=== PATIENT | female | born 1990 | race Caucasian/White ===

== ENCOUNTER 2018-05-23 11:11 | Emergency (ER) | payer OTHER ==
[~2018-05-23] VITALS: Ht 157.5 cm; Wt 61.4 kg
[2018-05-23 11:18] VITALS: TEMP 37.4; Ht 157.5 cm; Wt 61.4 kg
[2018-05-23] MEDS ORDERED: KLN/5 PO (11:46)
[2018-05-23] MEDS ORDERED: BCPILLS PO (11:46)
[2018-05-23] MEDS ORDERED: PROPARACAINE HCL 0.5% OP SOLN 15 ML BTL OP STA (11:48)
[2018-05-23 12:44] VITALS: BP 121/62; PULSE 67; O2SAT 100
--- NOTE | 2018-05-23 15:08 | EMERGENCY ROOM VISIT NOTE ---
History First contact with patient: 11:37 Chief Complaint: CHEMICAL EXPOSURE Stated Complaint: SKIN IRRITATION, SIGNIFICANT EYE IRRITATION History of Present Illness The patient is a 27 year old female who presents to the Emergency Room with complaints of a chemical splash to her face, chest, neck and arms. The patient reports that she was mixing chemicals at work under boiling conditions. She reports that it exploded, spring chemical solution everywhere. She reported a burning sensation of the right eye. She did irrigate her eye with an eyewash station for approximately 10 minutes. The patient does wear contacts, and removed her right contact prior to irrigation. She reports mild persistent burning sensation. She reports that the redness and burning on the skin has significantly improved. She reports that the chemical she was using was potassium hydroxide and ammonium chloride. She rates her eye discomfort a 3 out of 10. Tetanus immunization is up-to-date. Review of Systems HEENT: Denies dizziness, visual problems, hearing loss, tinnitus. Denies difficulty swallowing or oral lesions. PULMONARY: Denies cough, shortness of breath, sputum production or hemoptysis. CARDIOVASCULAR: Denies chest pain, palpitations, dyspnea on exertion, orthopnea or peripheral edema. GASTROINTESTINAL: Denies diarrhea, constipation, nausea, vomiting, or abdominal pain. GENITOURINARY: Denies dysuria, frequency, urgency or nocturia. NEUROLOGIC: Denies history of epilepsy, CVA, TIA or chronic headaches. MUSCULOSKELETAL: Denies history of joint tenderness/swelling. SKIN: Denies rashes or lesions. PSYCHIATRIC: Denies history of depression or mental illness. ENDOCRINE: Denies history of diabetes, thyroid disorders, abnormal hair growth or sexual dysfunction. Past Medical/Surgical History Medical Problems: (1) No significant past medical history Surgical Problems: (1) History of wisdom tooth extraction Family History FH: cancer FH: diabetes mellitus FH: lung disease FH: seizures Social History Smoking Status: Never Smoker Alcohol Use: occasionally Marital Status: single Housing Status: lives with roommate Occupation Status: employed Current/Historical Medications Scheduled Control Pills ( Control Pills), 1 TAB PO DAILY Scheduled PRN Clonazepam (Klonopin), 0.5 MG PO for Anxiety Physical Exam Vital Signs Date Time Temp Pulse Resp B/P (MAP) Pulse Ox O2 Delivery O2 Flow Rate FiO2 05/23/18 12:44 67 18 121/62 100 05/23/18 11:18 37.4 75 17 132/80 93 Room Air Right Eye Acuity: 20/200 no corrective lens Left Eye Acuity: 20/70 no corrective lens Physical Exam CONSTITUTIONAL: Healthy and well nourished. Alert and oriented X 3 with positive affect. HEENT: Normocephalic, atraumatic. Pupils equal, round and reactive. NECK: Full active range of motion without discomfort. RESPIRATORY: Clear to auscultation bilaterally with no wheezing, crackles, rhonchi or stridor. CARDIOVASCULAR: Regular rate and rhythm with no murmurs, rubs or gallops. GASTROINTESTINAL: Bowel sounds present in all quadrants. MUSCULOSKELETAL: Full range of motion of all joints without discomfort. INTEGUMENTARY: No rash or other significant dermatologic conditions noted. NEUROLOGIC: Cranial nerves II-XII grossly intact. No focal neurologic deficits noted. Medical Decision & Procedures Medications Administered Medications (Trade) Dose Ordered Sig/Britt Route Start Time Stop Time Status Last Admin Dose Admin Proparacaine HCl (Alcaine 0.5% Oph Soln) 2 drops NOW STAT OP 05/23/18 11:48 05/23/18 11:49 DC 05/23/18 11:48 2 DROPS Procedure Quick pH measurement of the right eye was 7. 2 drops of Alcaine were instilled into the eye, then Krunal lens irrigation with a liter normal saline was administered. After irrigation was completed, the patient reported relief of the burning sensation in the eye. Slit-lamp and fluorescein exam did not show any evidence for significant conjunctival inflammation or injection. No mucopurulent or bloody drainage noted. No hyphema. Fluorescein exam does not show any abnormal uptake within the cornea or conjunctiva. ED Course Patient history and physical exam were performed. Nurse's notes were reviewed. Vital signs were reviewed and were normal. Quick PH measurement of the right eye was normal. The patient also does not have any significant chemical abdi of the soft tissue of the chest, neck and extremities. Quick attention to Krunal lens irrigation of the right eye was performed. Meanwhile, I reviewed MSDS sheets for the chemicals that were used. Slit-lamp and fluorescein exam were also performed and were normal. The patient denied any eye discomfort at the time of discharge. Her visual acuity could not be fully assessed because she did not have her glasses with her. At this point, the patient was ordered Lacri-Lube as needed for comfort. Unfortunately hospital does not have any in stock. She was advised that most pharmacies carry Lacri-Lube or equivalent lubrication. She was encouraged to intermittently apply cool compresses as needed for any additional eye or skin burning. She was provided contact information for Dr. Vora, weight reducing technician should she need further follow-up and reevaluation. She is also welcome to return to the emergency department for any developing visual change, burning or other concerning symptoms. The patient was happy with plan of care, and denied any pain at the time of discharge. Medical Decision Medication Reconcilliation Current Medication List: was personally reviewed by me Blood Pressure Screening Patient's blood pressure: Normal blood pressure Impression Primary Impression: Exposure to chemical irritant Departure Information Dispostion Home / Self-Care Condition GOOD Forms HOME CARE DOCUMENTATION FORM, IMPORTANT VISIT INFORMATION Patient Instructions My [facility] Additional Instructions Suggest showering to remove all traces of chemicals from the skin. Use Lacri-Lube eyedrops as needed for additional eye comfort. Ibuprofen or Tylenol as needed for pain. Follow-up with ophthalmology (Dr. Vora) as needed for further eye reevaluation and management.
== END 2018-05-23 12:45 | disposition home or self-care (01) ==
LOC: C.EDB 11:12 → C.EDD 12:45
DX: Z77.098 Contact with and (suspected) exposure to other hazardous, chiefly nonmedicinal, chemicals (principal); Y99.0 Civilian activity done for income or pay; Z80.9 Family history of malignant neoplasm, unspecified; Z83.3 Family history of diabetes mellitus; Z84.1 Family history of disorders of kidney and ureter; Z82.0 Family history of epilepsy and other diseases of the nervous system; Z79.3 Long term (current) use of hormonal contraceptives